=== PATIENT | female | born 1935 | race Caucasian/White ===

== ENCOUNTER 2018-11-20 13:48 | Emergency (ER) | payer MEDICARE ==
[~2018-11-20] VITALS: Ht 149.9 cm; Wt 51.7 kg
[~2018-11-20 13:48] MED LIST: ARTANE PO; ASPI81EC; CLON.5 PO; IRON; METO25ER PO; PROACE100 PO; RXPROACE PO; SULTRIDS PO; TEMA30 PO; TRAM50 PO; TRIHYD253A
[2018-11-20] MEDS ORDERED: Norco 5-325 Ta1 EACH PO (15:47)
[2018-11-20] MEDS ORDERED: ONDA4ODT MM (15:47)
[2018-11-20] MEDS ORDERED: IBUP400 PO (15:47)
== END 2018-11-20 17:25 | disposition home or self-care (01) ==
LOC: ER 13:48
DX: S52.612A Displaced fracture of left ulna styloid process, initial encounter for closed fracture (principal); S52.572A Other intraarticular fracture of lower end of left radius, initial encounter for closed fracture; I48.91 Unspecified atrial fibrillation; Z79.899 Other long term (current) drug therapy; Z79.82 Long term (current) use of aspirin; W19.XXXA Unspecified fall, initial encounter
CPT/HCPCS: 25605; 73100; 73110; 96374; 96375; 99152; 99283-25; J1170; J2405; J7030

== ENCOUNTER 2021-04-06 14:34 | Emergency (ER) | payer MEDICARE ==
[~2021-04-06] VITALS: Ht 144.8 cm; Wt 50.4 kg
[~2021-04-06 14:34] MED LIST changes: +IBUP400 PO; +Norco 5-325 Ta1 EACH PO; +ONDA4ODT MM
[2021-04-06 15:14] LABS: BASOPHILS ABSOLUTE AUTO 0.06 K/mm3 (0.00-0.23); BASOPHILS PERCENT AUTO 1 % (0-2); EOSINOPHILS ABSOLUTE AUTO 0.11 K/mm3 (0.00-0.68); EOSINOPHILS PERCENT AUTO 1 % (0-6); Hematocrit 41.8 % (33.0-51.0); Hemoglobin 13.6 g/dL (11.5-16.0); IMMATURE GRAN ABSOLUTE AUTO 0.02 K/mm3 (0.00-0.10); IMMATURE GRAN PERCENT AUTO 0 % (0-1); LYMPHOCYTES ABSOLUTE AUTO 2.26 K/mm3 (0.84-5.20); LYMPHOCYTES PERCENT AUTO 28 % (21-46); MONOCYTES ABSOLUTE AUTO 0.82 K/mm3 (0.16-1.47); MONOCYTES PERCENT AUTO 10 % (4-13); Mean Corpuscular HGB 30.2 pg (26.0-34.0); Mean Corpuscular HGB Conc 32.5 g/dL (31.5-36.5); Mean Corpuscular Volume 93 fL (80-100); Mean Platelet Volume 9.7 fL (9.1-12.4); NEUTROPHILS ABSOLUTE AUTO 4.88 K/mm3 (1.96-9.15); NEUTROPHILS PERCENT AUTO 60 % (41-73); Platelet Count 299 K/mm3 (150-400); RDW Coefficient Variation 13.2 % (11.7-14.2); RDW Standard Deviation 44.7 fL (35.1-46.3); Red Blood Cell Count 4.51 M/mm3 (3.80-5.20); White Blood Cell Count 8.15 K/mm3 (4.00-11.30)
[2021-04-06 15:41] LABS: Alanine Aminotransfer (ALT/SGP 20 U/L (12-78); Albumin, Blood 3.5 g/dL (3.4-5.0); Albumin/Globulin Ratio 0.8 (0.8-1.8); Alk Phos 117 U/L (50-136); Anion Gap 6 mmol/L (6-16); Aspartate Aminotrans (AST/SGOT 16 U/L (12-37); Bilirubin, Total 0.5 mg/dL (0.1-1.0); Blood Urea Nitrogen 23 mg/dL (8-24); Bun/Creatinine Ratio 26.9 (12.0-20.0); CO2, Blood 27 mmol/L (21-32); Calcium, Blood 8.6 mg/dL (8.5-10.1); Chloride, Blood 104 mmol/L (98-108); Creatinine, Blood 0.86 mg/dL (0.40-1.00); Globulin, Blood 4.4 g/dL (2.2-4.0); Glomerular Filtration Rate >60 (60-); Glucose, Blood 89 mg/dL (70-99); Potassium, Blood 4.1 mmol/L (3.5-5.5); Sodium, Blood 137 mmol/L (136-145); Total Protein, Blood 7.9 g/dL (6.4-8.2); Troponin I <0.015 ng/mL (0.000-0.040)
[2021-04-06 15:43] LABS: Free Thyroxine 1.21 ng/dL (0.70-1.60); Magnesium, Blood 2.3 mg/dL (1.6-2.4); Thyroid Stimulating Hormone 2.12 uIU/mL (0.360-4.800)
[2021-04-06 15:54] LABS: Source, Urine Clean Catch
[2021-04-06 16:02] LABS: Appearance, Urine Clear (Clear); Bilirubin, Urine Neg (Neg); Blood, Urine Neg (Neg); Color, Urine Yellow (P-Yellow); Glucose Qualitative, Urine Neg (Neg); Ketones, Urine Neg (Neg); Leukocyte Esterase, Urine 1+ (Neg); Nitrite, Urine Neg (Neg); Protein, Urine 1+ (Neg); Urobilinogen, Urine NORM (Normal)
[2021-04-06 16:13] LABS: Red Blood Cells, Urine Not Seen /hpf (0-2); White Blood Cells, Urine 0-2 /hpf (0-5)
[2021-04-06 16:14] LABS: Bacteria Mod /hpf; Mucus Light (0-Heavy); Squamous Epithelial Cells Few /hpf (Few)
== END 2021-04-06 16:48 | disposition home or self-care (01) ==
LOC: ER 14:34
PROVIDERS: Emergency Medicine
DX: R53.1 Weakness (principal); G25.0 Essential tremor; R82.90 Unspecified abnormal findings in urine; Z79.82 Long term (current) use of aspirin; Z88.5 Allergy status to narcotic agent; Z79.899 Other long term (current) drug therapy
CPT/HCPCS: 36415; 70450; 71046; 80053; 81001; 83735; 83880; 84439; 84443; 84484; 85025; 87086; 93005; 93010; 99285-25

== ENCOUNTER 2023-02-16 13:47 | Emergency (ER) | payer MEDICARE ==
[~2023-02-16] VITALS: Ht 149.9 cm; Wt 47.6 kg
[2023-02-16] MEDS ORDERED: GABA100 PO (14:20)
[2023-02-16] MEDS ORDERED: DILTIAZEM 24HR120 M2 PO (14:20)
[2023-02-16 14:23] LABS: BASOPHILS ABSOLUTE AUTO 0.07 K/mm3 (0.00-0.23); BASOPHILS PERCENT AUTO 1 % (0-2); EOSINOPHILS PERCENT AUTO 2 % (0-6); Hematocrit 43.9 % (33.0-51.0); Hemoglobin 14.3 g/dL (11.5-16.0); IMMATURE GRAN ABSOLUTE AUTO 0.03 K/mm3 (0.00-0.10); IMMATURE GRAN PERCENT AUTO 1 % (0-1); LYMPHOCYTES ABSOLUTE AUTO 1.76 K/mm3 (0.84-5.20); LYMPHOCYTES PERCENT AUTO 27 % (21-46); MONOCYTES ABSOLUTE AUTO 0.74 K/mm3 (0.16-1.47); MONOCYTES PERCENT AUTO 11 % (4-13); Mean Corpuscular HGB 30.4 pg (26.0-34.0); Mean Corpuscular HGB Conc 32.6 g/dL (31.5-36.5); Mean Corpuscular Volume 93 fL (80-100); NEUTROPHILS ABSOLUTE AUTO 3.84 K/mm3 (1.96-9.15); NEUTROPHILS PERCENT AUTO 59 % (41-73); Platelet Count 383 K/mm3 (150-400); RDW Coefficient Variation 13.6 % (11.7-14.2); RDW Standard Deviation 46.5 fL (35.1-46.3); Red Blood Cell Count 4.71 M/mm3 (3.80-5.20); White Blood Cell Count 6.54 K/mm3 (4.00-11.30)
[2023-02-16 14:39] LABS: Albumin, Blood 3.4 g/dL (3.4-5.0); Albumin/Globulin Ratio 0.7 (0.8-1.8); Bilirubin, Total 0.4 mg/dL (0.1-1.0); Bun/Creatinine Ratio 31.9 (12.0-20.0); Calcium, Blood 9.3 mg/dL (8.5-10.1); Creatinine, Blood 0.75 mg/dL (0.40-1.00); Potassium, Blood 4.2 mmol/L (3.5-5.5); Total Protein, Blood 8.4 g/dL (6.4-8.2)
[2023-02-16 16:09] LABS: Source, Urine Straight Cath
[2023-02-16 16:11] LABS: Appearance, Urine Clear (Clear); Bilirubin, Urine Neg (Neg); Blood, Urine Neg (Neg); Color, Urine Yellow (P-Yellow); Glucose Qualitative, Urine Neg (Neg); Ketones, Urine Neg (Neg); Leukocyte Esterase, Urine Neg (Neg); Nitrite, Urine Neg (Neg); Protein, Urine 1+ (Neg); Urobilinogen, Urine NORM (Normal)
[2023-02-16 16:32] LABS: Influenza A, PCR NEGATIVE (NEGATIVE); Influenza B, PCR NEGATIVE (NEGATIVE); Resp Syncytial Virus, PCR NEGATIVE (NEGATIVE); SARS-Cov-2 (COVID-19) PCR, MMC NEGATIVE (NEGATIVE)
[2023-02-16 17:26] VITALS: BP 148/95
== END 2023-02-16 17:39 | disposition home or self-care (01) ==
LOC: ER 13:47
PROVIDERS: Emergency Medicine
DX: R53.1 Weakness (principal); Z79.899 Other long term (current) drug therapy; I48.91 Unspecified atrial fibrillation; I10 Essential (primary) hypertension
CPT/HCPCS: 0241U; 36415; 71045; 80053; 84443; 85025; 93005; 93010; 99285-25

== ENCOUNTER 2023-08-05 01:24 | Emergency (ER) | payer MEDICARE ==
[~2023-08-05] VITALS: Ht 149.9 cm; Wt 47.6 kg
[~2023-08-05 01:24] MED LIST changes: +DILTIAZEM 24HR120 M2 PO; +GABA100 PO
[2023-08-05 01:34] VITALS: BP 140/104
== END 2023-08-05 02:45 | disposition home or self-care (01) ==
LOC: ER 01:24
DX: T14.8XXA Other injury of unspecified body region, initial encounter (principal); M25.512 Pain in left shoulder; M25.552 Pain in left hip; W18.30XA Fall on same level, unspecified, initial encounter; Z79.899 Other long term (current) drug therapy; I48.91 Unspecified atrial fibrillation; I10 Essential (primary) hypertension
CPT/HCPCS: 73030; 99283-25

== ENCOUNTER 2024-10-05 21:12 | Inpatient (IN) | payer MEDICARE ==
[~2024-10-05] VITALS: Ht 162.6 cm; Wt 47.0 kg
[~2024-10-05 21:12] MED LIST changes: +CEFU500T30 PO; +DRAMAMINE25 M1 PO; +FERSU300 PO; -METO25ER PO; +METO50ER PO; +MIRALAX17 GM PO; +Neurontin 100100 MG PO; +TEMA15 PO; +VISBIOME 112.51 EACH PO; +VITAMIN C125 MG PO
[2024-10-05 21:35] LABS: Source, Urine Straight Cath
[2024-10-05 21:43] LABS: Bilirubin, Urine Neg (Neg); Blood, Urine Neg (Neg); Glucose Qualitative, Urine Neg (Neg); Ketones, Urine Neg (Neg); Leukocyte Esterase, Urine 1+ (Neg); Nitrite, Urine Pos (Neg); Protein, Urine 2+ (Neg); Specific Gravity, Urine 1.015 (1.003-1.022); Urobilinogen, Urine NORM (Normal)
[2024-10-05 21:49] LABS: Appearance, Urine Hazy (Clear); Color, Urine Yellow (P-Yellow)
[2024-10-05 21:50] LABS: Bacteria Many /hpf; Red Blood Cells, Urine Not Seen /hpf (0-2); Squamous Epithelial Cells Rare /hpf (Few); White Blood Cells, Urine 25-50 /hpf (0-5)
[2024-10-05] MEDS ORDERED: Trihexyphenidyl2 MG PO (21:50)
[2024-10-05 21:54] LABS: Hemoglobin 10.1 g/dL (11.5-16.0); Mean Corpuscular HGB 27.2 pg (26.0-34.0); Mean Corpuscular HGB Conc 32.6 g/dL (31.5-36.5); Mean Corpuscular Volume 84 fL (80-100); Mean Platelet Volume 9.7 fL (9.1-12.4); NRBC ABSOLUTE 1.42 K/mm3 (0.00-0.02); NRBC Auto 0.8 /100 WBC (0.0-0.2); Platelet Count 623 K/mm3 (150-400); RDW Coefficient Variation 25.1 % (11.7-14.2); RDW Standard Deviation 76.4 fL (35.1-46.3); Red Blood Cell Count 3.71 M/mm3 (3.80-5.20)
[2024-10-05 22:01] LABS: White Blood Cell Count 167.33 K/mm3 (4.00-11.30)
[2024-10-05] MEDS ORDERED: NS 1,000 ML IV SCH (22:05)
[2024-10-05] MEDS ORDERED: CefTRIAXone Sodium 1,000 MG in NS 100 ML IV ONE (22:05)
[2024-10-05 22:13] LABS: Albumin, Blood 2.9 g/dL (3.4-5.0); Albumin/Globulin Ratio 0.7 (0.8-1.8); Bilirubin, Total 0.3 mg/dL (0.1-1.0); Bun/Creatinine Ratio 23.4 (12.0-20.0); Calcium, Blood 8.7 mg/dL (8.5-10.1); Creatinine, Blood 1.71 mg/dL (0.40-1.00); Globulin, Blood 4.3 g/dL (2.2-4.0); Total Protein, Blood 7.2 g/dL (6.4-8.2)
[2024-10-05 22:19] LABS: BAND PERCENT MAN 22 % (0-8); BASOPHILS ABSOLUTE MAN 5.01 K/mm3 (0.00-0.23); BASOPHILS PERCENT MAN 3 % (0-2); BLASTS PERCENT MAN 6 % (0-0); EOSINOPHILS ABSOLUTE MAN 6.69 K/mm3 (0.00-0.68); EOSINOPHILS PERCENT MAN 4 % (0-6); LYMPHOCYTES ABSOLUTE MAN 16.73 K/mm3 (0.84-5.20); LYMPHOCYTES PERCENT MAN 10 % (21-46); METAMYELOCYTE ABSOLUTE MAN 5.01 K/mm3 (0.00-0.00); METAMYELOCYTE PERCENT MAN 3 % (0-0); MONOCYTES ABSOLUTE MAN 23.42 K/mm3 (0.16-1.47); MONOCYTES PERCENT MAN 14 % (4-13); MYELOCYTE ABSOLUTE MAN 21.75 K/mm3 (0.00-0.00); MYELOCYTE PERCENT MAN 13 % (0-0); NEUTROPHILS ABSOLUTE MAN 75.29 K/mm3 (1.96-9.15); PROMYELOCYTE ABSOLUTE MAN 3.34 K/mm3 (0.00-0.00); PROMYELOCYTE PERCENT MAN 2 % (0-0); SEG NEUTROPHILS PERCENT MAN 23 % (41-73); TOTAL CELLS COUNTED 100
[2024-10-05 22:29] LABS: Influenza A, PCR NEGATIVE (NEGATIVE); Influenza B, PCR NEGATIVE (NEGATIVE); Resp Syncytial Virus, PCR NEGATIVE (NEGATIVE); SARS-Cov-2 (COVID-19) PCR, MMC NEGATIVE (NEGATIVE)
[2024-10-05] MEDS ORDERED: FLU VACC TS2024-25(6MOS UP)/PF 45 MCG/0.5 ML SYRINGE IM ONE (23:35)
[2024-10-06 00:10] LABS: U Amphetamine Screen Not Detected; U Barbituate Screen Not Detected; U Benzodiazapine Screen DETECTED; U Buprenorphine Screen Not Detected; U Cannabinoids Screen Not Detected; U Cocaine Screen Not Detected; U Methadone Screen Not Detected; U Methamphetamine Screen Not Detected; U Opiates Screen Not Detected; U Oxycodone Screen Not Detected; U Phencyclidine Screen Not Detected
[2024-10-06 00:18] LABS: Creatinine, Urine Random 55.5 mg/dL (27.00-270.00)
[2024-10-06 00:45] VITALS: BP 131/50
[2024-10-06] MEDS ORDERED: ENSURE PLUS237 ML PO (01:22)
[2024-10-06] MEDS ORDERED: Acetaminophen650 M1 PO (01:34)
[2024-10-06] MEDS ORDERED: BISA10S PR (01:35)
[2024-10-06] MEDS ORDERED: HYDHCL25 PO (01:36)
[2024-10-06] MEDS ORDERED: DULCOLAX400 MG/5 M PO (01:36)
[2024-10-06] MEDS ORDERED: SENN187 PO (01:39)
[2024-10-06] MEDS ORDERED: Calcium Carbon500 MG PO (01:44)
[2024-10-06] MEDS ORDERED: NS 1,000 ML IV ONE (02:54)
--- NOTE | 2024-10-06 05:35 | NUR ---
SHIFT SUMMARY PT ADMITTED FROM THE ED AT 0035 WITH TOXIC METABOLIC ENCEPHALOPATHY AND UTI. PT MOSTLY CATATONIC THROUGH THE NIGHT. AFTER 0200, PT OCCASSIONALLY CRIES OUT, AND SAID "NO" A COUPLE OF TIMES. PT WITH REDDENED SPINE AND SACRUM- MEPELEX APPLIED. HEELS REDDENED AND BOGGY- HEEL PROTECTORS APPLIED. PT REPOSITIONED WITH PILLOWS. IVF INFUSING AT 200ML/HR PER ORDER. PT'S DAUGHTERS AT BEDSIDE FOR PART OF THE NIGHT. BED IN LOWEST POSITION, CALL LIGHT WITHIN REACH, SIDE RAILS UP X3.
[2024-10-06 06:24] VITALS: BP 143/53
[2024-10-06 06:58] LABS: Hemoglobin 8.3 g/dL (11.5-16.0); Mean Corpuscular HGB 27.5 pg (26.0-34.0); Mean Corpuscular HGB Conc 33.2 g/dL (31.5-36.5); Mean Corpuscular Volume 83 fL (80-100); Mean Platelet Volume 9.7 fL (9.1-12.4); NRBC ABSOLUTE 0.89 K/mm3 (0.00-0.02); NRBC Auto 0.7 /100 WBC (0.0-0.2); Platelet Count 521 K/mm3 (150-400); RDW Standard Deviation 77.3 fL (35.1-46.3); Red Blood Cell Count 3.02 M/mm3 (3.80-5.20)
[2024-10-06 07:06] LABS: White Blood Cell Count 122.89 K/mm3 (4.00-11.30)
[2024-10-06 07:17] LABS: Bun/Creatinine Ratio 20.8 (12.0-20.0); Calcium, Blood 8.6 mg/dL (8.5-10.1); Creatinine, Blood 1.83 mg/dL (0.40-1.00); Potassium, Blood 3.5 mmol/L (3.5-5.5)
[2024-10-06 07:30] VITALS: BP 134/47
[2024-10-06 08:25] LABS: BAND PERCENT MAN 28 % (0-8); BASOPHILS ABSOLUTE MAN 3.68 K/mm3 (0.00-0.23); BASOPHILS PERCENT MAN 3 % (0-2); BLASTS PERCENT MAN 7 % (0-0); EOSINOPHILS ABSOLUTE MAN 3.68 K/mm3 (0.00-0.68); EOSINOPHILS PERCENT MAN 3 % (0-6); LYMPHOCYTES ABSOLUTE MAN 4.91 K/mm3 (0.84-5.20); LYMPHOCYTES PERCENT MAN 4 % (21-46); METAMYELOCYTE ABSOLUTE MAN 1.22 K/mm3 (0.00-0.00); METAMYELOCYTE PERCENT MAN 1 % (0-0); MONOCYTES ABSOLUTE MAN 12.28 K/mm3 (0.16-1.47); MONOCYTES PERCENT MAN 10 % (4-13); MYELOCYTE ABSOLUTE MAN 24.57 K/mm3 (0.00-0.00); MYELOCYTE PERCENT MAN 20 % (0-0); NEUTROPHILS ABSOLUTE MAN 62.67 K/mm3 (1.96-9.15); PROMYELOCYTE ABSOLUTE MAN 1.22 K/mm3 (0.00-0.00); PROMYELOCYTE PERCENT MAN 1 % (0-0); SEG NEUTROPHILS PERCENT MAN 23 % (41-73); TOTAL CELLS COUNTED 100
[2024-10-06] MEDS ORDERED: Enoxaparin 30 MG/0.3 ML SYR SC SCH (09:00)
[2024-10-06] MEDS ORDERED: NS 1,000 ML IV SCH (11:15)
[2024-10-06] MEDS ORDERED: Acetaminophen 325 MG TABLET PO STA (11:59)
[2024-10-06] MEDS ORDERED: Acetaminophen 325 MG TABLET PO PRN (12:00)
[2024-10-06] MEDS ORDERED: Calcium Carbonate 500 MG Tab Chew PO PRN (12:05)
[2024-10-06] MEDS ORDERED: Bisacodyl 10 MG Supp PR PRN (12:05)
[2024-10-06] MEDS ORDERED: Acetaminophen 650 MG Supp PR PRN (13:00)
[2024-10-06] MEDS ORDERED: FentaNYL Citrate 50 MCG/ML 2 ML Injection IV STA (13:35)
[2024-10-06] MEDS ORDERED: Misc. Oral Solution PO SCH (14:00)
[2024-10-06] MEDS ORDERED: FentaNYL Citrate 50 MCG/ML 2 ML Injection IV PRN (14:00)
[2024-10-06 16:08] VITALS: BP 136/65
--- NOTE | 2024-10-06 16:29 | NUR ---
SHIFT SUMMARY PT SLEEPING AT START OF SHIFT. UNABLE TO WAKE, EVEN WITH TURNING AND CHANGING. PT'S DAUGHTERS HERE LATE MORNING WITH PT SLOWLY RESPONDING TO THEM AND C/O PAIN, EVERYWHERE. FIRST HER KNEES AND THEN CHEST. DR RAMOS NOTIFIED; NEW ORDERS PLACED. PALLIATIVE CARE NOTIFIED AND CAME TO TALK WITH DAUGHTERS AND FAMILY. PT WANTING TO BE COMFORT CARE AND GO HOME ON HOSPICE. PT IS NOW ORIENTED WITH MULTIPLE FAMILY HERE. PT DECLINING TO TAKE PO JUST YET. PT DID REQUEST ORAL CARE AND WAS ABLE TO TOLERATE WATER ON A SPONGE. PT DECLINED PO MEDS. RECTAL TYLENOL GIVEN WELL FENTANYL X1. PT TOLERATING WELL AND REPORTED IT VERY EFFECTIVE. PT REPOSITIONED MULTIPLE TIMES THRU OUT THE SHIFT. CURRENTLY INCONTINENT OF BLADDER, BUT REPORTED NORMALLY SHE DOES KNOW WHEN SHE NEEDS TO VOID. ADMITTED FOR METABOLIC ENCEPHALOPATHY R/T UTI. NEW DX OF LEUKEMIA WELL. IVF'S INFUSING PER EMAR. HEATING PAD PLACED ON R KNEE, PER PT REQUEST. DENIES FURTHER NEEDS AT THIS TIME. CALL LT IN REACH.
[2024-10-06] MEDS ORDERED: dilTIAZem HCL 120 MG CAP.CD PO SCH (18:00)
[2024-10-06 20:39] VITALS: BP 132/90
[2024-10-06] MEDS ORDERED: CefTRIAXone Sodium 1,000 MG in NS 100 ML IV SCH (21:00)
[2024-10-06 21:04] VITALS: BP 133/54
[2024-10-06] MEDS ORDERED: Phenazopyridine HCl 100 MG Tab PO SCH (23:00)
--- NOTE | 2024-10-06 23:01 | NUR ---
PT COMPLAINING OF BLADDER DISCOMFORT AND BURNING. TABLE GAMES FLOOR SUPERVISOR JOHNNIE NOTIFIED AND PYRIDIUM ORDERED. PT ALSO COMPLETELY AWAKE AND ALERT, ASKING TO ADVANCE DIET FROM NPO. ORDERS RECEIVED FOR REGULAR DIET. SOFT AND BITE SIZED DIET ORDERED PER USUAL DIET.
[2024-10-06] MEDS ORDERED: Cyclobenzaprine HCl 10 MG Tab PO PRN (23:45)
--- NOTE | 2024-10-06 23:45 | NUR ---
PER PHARMACY PYRIDIUM IS CONTRAINDICATED WITH PT'S RENAL FUNCTION. WINTERIZER JOHNNIE NOTIFIED AND FLEXERIL ORDERED FOR BLADDER SPASMS.
[2024-10-07 04:15] VITALS: BP 132/81
[2024-10-07 06:09] LABS: Mean Corpuscular HGB 27.4 pg (26.0-34.0); Mean Corpuscular HGB Conc 32.1 g/dL (31.5-36.5); Mean Corpuscular Volume 85 fL (80-100); Mean Platelet Volume 9.5 fL (9.1-12.4); NRBC ABSOLUTE 0.85 K/mm3 (0.00-0.02); NRBC Auto 0.7 /100 WBC (0.0-0.2); Platelet Count 566 K/mm3 (150-400); RDW Coefficient Variation 25.6 % (11.7-14.2); RDW Standard Deviation 79.5 fL (35.1-46.3); Red Blood Cell Count 3.29 M/mm3 (3.80-5.20)
--- NOTE | 2024-10-07 06:09 | NUR ---
SHIFT SUMMARY PT A&O X4. PT MUCH MORE AWAKE. REQUESTING ORAL TYLENOL INSTEAD OF RECTAL. PT ABLE TO SWALLOW WATER AND TOOK MEDS EASILY WITH APPLE SAUCE. ORDER RECEIVED FOR DIET. PT C/O BURNING AND SPASMS TO HER BLADDER- ORDER RECEIVED FOR FLEXERIL. PT ALSO C/O PAIN IN VARYING PLACES THROUGH THE NIGHT. MEDICATED PER EMAR. PT INCONT. OF STRONG SMELLING URINE. MEPELEX INTACT TO SACRUM AND SPINE. HEELS LESS RED, BUT STILL BOGGY. HEELS ELEVATED OFF BED AND PT REPOSITIONED Q 2HRS. MULTIPLE FAMILY MEMBERS VISITING AT BEGINNING OF SHIFT. DAUGHTER, HAYLEY, AT BEDSIDE THROUGH THE NIGHT. BED IN LOWEST POSITION, CALL LIGHT WITHIN REACH, SIDE RAILS UP X2.
[2024-10-07 06:18] LABS: White Blood Cell Count 123.38 K/mm3 (4.00-11.30)
[2024-10-07 06:38] LABS: BAND PERCENT MAN 18 % (0-8); BASOPHILS ABSOLUTE MAN 4.93 K/mm3 (0.00-0.23); BASOPHILS PERCENT MAN 4 % (0-2); BLASTS PERCENT MAN 6 % (0-0); EOSINOPHILS PERCENT MAN 3 % (0-6); LYMPHOCYTES ABSOLUTE MAN 12.33 K/mm3 (0.84-5.20); LYMPHOCYTES PERCENT MAN 10 % (21-46); METAMYELOCYTE ABSOLUTE MAN 4.93 K/mm3 (0.00-0.00); METAMYELOCYTE PERCENT MAN 4 % (0-0); MONOCYTES PERCENT MAN 3 % (4-13); MYELOCYTE ABSOLUTE MAN 19.74 K/mm3 (0.00-0.00); MYELOCYTE PERCENT MAN 16 % (0-0); NEUTROPHILS ABSOLUTE MAN 65.39 K/mm3 (1.96-9.15); PROMYELOCYTE ABSOLUTE MAN 1.23 K/mm3 (0.00-0.00); PROMYELOCYTE PERCENT MAN 1 % (0-0); SEG NEUTROPHILS PERCENT MAN 35 % (41-73); TOTAL CELLS COUNTED 100
[2024-10-07 06:44] LABS: Albumin, Blood 2.6 g/dL (3.4-5.0); Anion Gap 10 mmol/L (3-11); Blood Urea Nitrogen 33 mg/dL (8-24); Bun/Creatinine Ratio 19.2 (12.0-20.0); CO2, Blood 19 mmol/L (21-32); Calcium, Blood 8.6 mg/dL (8.5-10.1); Chloride, Blood 121 mmol/L (98-108); Creatinine, Blood 1.72 mg/dL (0.40-1.00); Glomerular Filtration Rate 28 (60-); Glucose, Blood 71 mg/dL (70-99); Phosphorus, Blood 3.2 mg/dL (2.5-4.9); Potassium, Blood 3.8 mmol/L (3.5-5.5); Sodium, Blood 146 mmol/L (136-145)
[2024-10-07 07:48] VITALS: BP 131/55
[2024-10-07] MEDS ORDERED: Metoprolol Succinate 50 MG TABCR PO SCH (09:00)
[2024-10-07] MEDS ORDERED: Polyethylene Glycol 3350 17 gm PO SCH (09:00)
[2024-10-07] MEDS ORDERED: Ferrous Sulfate 325 MG Tab PO SCH (09:00)
[2024-10-07] MEDS ORDERED: Phenazopyridine HCl 100 MG Tab PO SCH (09:00)
[2024-10-07] MEDS ORDERED: Heparin Sodium,Porcine 5,000 UNIT/0.5 ML SDV SC SCH (09:00)
[2024-10-07] MEDS ORDERED: Heparin Sodium 5000 Units/ML 1ML MDV SC SCH (12:27)
--- NOTE | 2024-10-07 13:55 | NUR ---
Spiritual care visit conducted. Patient is lying in bed and has dtr, Keisha, and son, Jose, bedside. They all engage in the conversation and explain about the patient's medical history, their family dynamics and the plan moving forward. 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 They welcome prayer, which I gladly supply and voice much appreciation for the high quality care of the staff and for the prayer. Patient showed signs of greater peace. I will continue to remain available.
[2024-10-07 15:18] VITALS: BP 135/55
--- NOTE | 2024-10-07 17:21 | NUR ---
SHIFT SUMMARY: PT AOX4 VERY PLEASANT. MILD CONFUSION BUT EASILY REDIRECTABLE. FAMILY AT BEDSIDE AND VERY PLEASANT. PT WAS UNABLE TO GET UP TO USE THE BSC, BUT KNEW WHEN SHE WENT. CHANGED AND CLEANED. PT TOLERATING MEDICATION WELL. COMPLAINTS OF PAIN AND MUSCLE SPASMS CAUSING PAIN, RELIEVED PER EMR AND REPOSITIONING. TOLERATED SOME CHICKEN NOODLE SOUP BUT OTHERWISE NOT EATING MUCH. BASELINE TREMOR STILL PRESENT. PT ABLE TO MAKE NEEDS KNOWN, RESTING IN BED, CALL LIGHT IN REACH, BED IN LOWEST POSITION. CONTINUING CARE.
--- NOTE | 2024-10-07 17:41 | NUR ---
THIS MICRO COMPUTER SPECIALIST HAS REVIEWED AND AGREES WITH ALL NOTES AND ASSESSMENTS BY ЕЛЕНА SEBASTIAN.
[2024-10-07 19:11] VITALS: BP 133/67
[2024-10-08 04:35] VITALS: BP 154/62
--- NOTE | 2024-10-08 05:25 | NUR ---
NOC SUMMARY- PT HAD SOME INCREASED PAIN THIS SHIFT. PT TX W/ PRN FENTANYL WITH RELIEF. PT HAS BEEN REPOSITIONED TOLERATED. PT HEELS HAVE BEEN KEPT ELEVATED AND OFF THE BED. PT CONTINUES TO WEAR MEPILEX ON MID BACK AND SACRUM. PT BRIEF CHANGED NEEDED. PT VOIDING AND SOME BM SMEARS. PT HAS SLEPT WELL THIS SHIFT. PT CURRENTLY SLEEPING IN NO DISTRESS. CALL LIGHT IN REACH.
[2024-10-08 06:18] LABS: Hematocrit 28.6 % (33.0-51.0); Hemoglobin 9.3 g/dL (11.5-16.0); Mean Corpuscular HGB 27.6 pg (26.0-34.0); Mean Corpuscular HGB Conc 32.5 g/dL (31.5-36.5); Mean Corpuscular Volume 85 fL (80-100); Mean Platelet Volume 9.8 fL (9.1-12.4); NRBC ABSOLUTE 0.87 K/mm3 (0.00-0.02); NRBC Auto 0.7 /100 WBC (0.0-0.2); Platelet Count 571 K/mm3 (150-400); RDW Coefficient Variation 25.4 % (11.7-14.2); RDW Standard Deviation 78.3 fL (35.1-46.3); Red Blood Cell Count 3.37 M/mm3 (3.80-5.20)
[2024-10-08 06:20] LABS: White Blood Cell Count 128.46 K/mm3 (4.00-11.30)
[2024-10-08 06:26] LABS: Albumin, Blood 2.5 g/dL (3.4-5.0); Anion Gap 8 mmol/L (3-11); Blood Urea Nitrogen 31 mg/dL (8-24); Bun/Creatinine Ratio 18.6 (12.0-20.0); CO2, Blood 21 mmol/L (21-32); Calcium, Blood 8.7 mg/dL (8.5-10.1); Chloride, Blood 117 mmol/L (98-108); Creatinine, Blood 1.67 mg/dL (0.40-1.00); Glomerular Filtration Rate 29 (60-); Glucose, Blood 72 mg/dL (70-99); Phosphorus, Blood 3.6 mg/dL (2.5-4.9); Potassium, Blood 4.1 mmol/L (3.5-5.5); Sodium, Blood 142 mmol/L (136-145)
[2024-10-08 07:32] VITALS: BP 159/62
[2024-10-08 07:33] LABS: BAND PERCENT MAN 7 % (0-8); BASOPHILS ABSOLUTE MAN 2.56 K/mm3 (0.00-0.23); BASOPHILS PERCENT MAN 2 % (0-2); BLASTS PERCENT MAN 5 % (0-0); EOSINOPHILS ABSOLUTE MAN 5.13 K/mm3 (0.00-0.68); EOSINOPHILS PERCENT MAN 4 % (0-6); LYMPHOCYTES ABSOLUTE MAN 5.13 K/mm3 (0.84-5.20); LYMPHOCYTES PERCENT MAN 4 % (21-46); METAMYELOCYTE ABSOLUTE MAN 3.85 K/mm3 (0.00-0.00); METAMYELOCYTE PERCENT MAN 3 % (0-0); MONOCYTES ABSOLUTE MAN 23.12 K/mm3 (0.16-1.47); MONOCYTES PERCENT MAN 18 % (4-13); MYELOCYTE ABSOLUTE MAN 42.39 K/mm3 (0.00-0.00); MYELOCYTE PERCENT MAN 33 % (0-0); NEUTROPHILS ABSOLUTE MAN 35.96 K/mm3 (1.96-9.15); PROMYELOCYTE ABSOLUTE MAN 3.85 K/mm3 (0.00-0.00); PROMYELOCYTE PERCENT MAN 3 % (0-0); SEG NEUTROPHILS PERCENT MAN 21 % (41-73); TOTAL CELLS COUNTED 100
[2024-10-08 12:59] LABS: CORONAVIRUS COVID-19 AG Negative (NEGATIVE)
[2024-10-08] MEDS ORDERED: VISBIOME 112.51 EACH PO (14:19)
[2024-10-08] MEDS ORDERED: ACET500 PO (14:20)
[2024-10-08] MEDS ORDERED: AMOX-CLAV 500-1 EAC1 PO (14:21)
--- NOTE | 2024-10-08 15:04 | NUR ---
PT DISCHARGED TO [facility] VIA [facility]. ALL VALUABLES RETURNED AND SENT WITH THE PT. FAMILY PRESENT AT TIMES OF DISCHARGE. ATTEMPT TO CALL REPORT TO [facility] UNABLE TO REACH.
== END 2024-10-08 11:00 | DRG 682 ==
LOC: ER 21:12 → MEDS 23:48 → ERHOLD 23:48 → MEDS 10-06 00:30
PROVIDERS: Emergency Medicine; Internal Medicine; Student in an Organized Health Care Education/Training Program; ADMIT Student in an Organized Health Care Education/Training Program
DX: N17.9 Acute kidney failure, unspecified (principal); G92.8 Other toxic encephalopathy; C85.90 Non-Hodgkin lymphoma, unspecified, unspecified site; N39.0 Urinary tract infection, site not specified; C92.10 Chronic myeloid leukemia, BCR/ABL-positive, not having achieved remission; I47.10 Supraventricular tachycardia, unspecified; Z66 Do not resuscitate; I12.9 Hypertensive chronic kidney disease with stage 1 through stage 4 chronic kidney disease, or unspecified chronic kidney disease; I48.91 Unspecified atrial fibrillation; N18.9 Chronic kidney disease, unspecified; R25.1 Tremor, unspecified; D50.9 Iron deficiency anemia, unspecified; G47.00 Insomnia, unspecified; G62.9 Polyneuropathy, unspecified; E86.0 Dehydration; B96.20 Unspecified Escherichia coli [E. coli] as the cause of diseases classified elsewhere; R42 Dizziness and giddiness; Z90.49 Acquired absence of other specified parts of digestive tract; Z79.899 Other long term (current) drug therapy; Z79.2 Long term (current) use of antibiotics; Z90.89 Acquired absence of other organs; Z90.710 Acquired absence of both cervix and uterus; Z87.891 Personal history of nicotine dependence; Z87.19 Personal history of other diseases of the digestive system; Z79.891 Long term (current) use of opiate analgesic; Z99.3 Dependence on wheelchair; Z98.890 Other specified postprocedural states; Z90.721 Acquired absence of ovaries, unilateral; Z28.89 Immunization not carried out for other reason
CPT/HCPCS: 0241U; 36415; 70450; 71045; 80048; 80053; 80069; 81001; 82570; 84300; 85025; 87077; 87086; 87186; 87426-QW; 93005; 93010; 96365; 97165; 97530; 99285-25; A9270; J0696; J1644; J1650; J3010; J7030; P9612

== ENCOUNTER 2024-11-02 12:56 | Emergency (ER) | payer MEDICARE, OTHER ==
[~2024-11-02] VITALS: Ht 149.9 cm; Wt 42.2 kg
[~2024-11-02 12:56] MED LIST changes: +ACET500 PO; +AMOX-CLAV 500-1 EAC1 PO; +Acetaminophen650 M1 PO; +BISA10S PR; +Calcium Carbon500 MG PO; +DULCOLAX400 MG/5 M PO; +ENSURE PLUS237 ML PO; +HYDHCL25 PO; +SENN187 PO; +Trihexyphenidyl2 MG PO
[2024-11-02] MEDS ORDERED: NS 1,000 ML IV SCH ×2 (13:30→14:35)
[2024-11-02 13:51] LABS: Hematocrit 26.7 % (33.0-51.0); Hemoglobin 8.9 g/dL (11.5-16.0); Mean Corpuscular HGB 28.7 pg (26.0-34.0); Mean Corpuscular HGB Conc 33.3 g/dL (31.5-36.5); Mean Corpuscular Volume 86 fL (80-100); Mean Platelet Volume 10.3 fL (9.1-12.4); NRBC ABSOLUTE 1.15 K/mm3 (0.00-0.02); NRBC Auto 0.7 /100 WBC (0.0-0.2); Platelet Count 285 K/mm3 (150-400); RDW Coefficient Variation 21.9 % (11.7-14.2); RDW Standard Deviation 67.4 fL (35.1-46.3)
[2024-11-02 13:57] LABS: White Blood Cell Count 170.24 K/mm3 (4.00-11.30)
[2024-11-02 14:14] LABS: Albumin, Blood 2.9 g/dL (3.4-5.0); Albumin/Globulin Ratio 0.6 (0.8-1.8); Bilirubin, Total 0.3 mg/dL (0.1-1.0); Bun/Creatinine Ratio 22.1 (12.0-20.0); Calcium, Blood 8.1 mg/dL (8.5-10.1); Creatinine, Blood 2.4 mg/dL (0.40-1.00); Globulin, Blood 4.5 g/dL (2.2-4.0); Potassium, Blood 4.4 mmol/L (3.5-5.5); Total Protein, Blood 7.4 g/dL (6.4-8.2)
[2024-11-02 14:30] LABS: BAND PERCENT MAN 19 % (0-8); BASOPHILS PERCENT MAN 1 % (0-2); BLASTS PERCENT MAN 3 % (0-0); EOSINOPHILS PERCENT MAN 2 % (0-6); LYMPHOCYTES % ATYPICAL MANUAL 2 % (0-0); LYMPHOCYTES ABSOLUTE MAN 15.32 K/mm3 (0.84-5.20); LYMPHOCYTES PERCENT MAN 7 % (21-46); METAMYELOCYTE ABSOLUTE MAN 13.61 K/mm3 (0.00-0.00); METAMYELOCYTE PERCENT MAN 8 % (0-0); MONOCYTES PERCENT MAN 4 % (4-13); MYELOCYTE ABSOLUTE MAN 32.34 K/mm3 (0.00-0.00); MYELOCYTE PERCENT MAN 19 % (0-0); NEUTROPHILS ABSOLUTE MAN 85.12 K/mm3 (1.96-9.15); PROMYELOCYTE PERCENT MAN 4 % (0-0); SEG NEUTROPHILS PERCENT MAN 31 % (41-73); TOTAL CELLS COUNTED 100
[2024-11-02 15:53] LABS: Source, Urine Fem Cath
[2024-11-02 16:02] LABS: Appearance, Urine Hazy (Clear); Bilirubin, Urine Neg (Neg); Blood, Urine 4+ (Neg); Color, Urine Yellow (P-Yellow); Glucose Qualitative, Urine Neg (Neg); Ketones, Urine Neg (Neg); Leukocyte Esterase, Urine 1+ (Neg); Nitrite, Urine Neg (Neg); Protein, Urine 2+ (Neg); Specific Gravity, Urine 1.015 (1.003-1.022); Urobilinogen, Urine 1+ (Normal); pH, Urine 6.5 (5.0-8.0)
[2024-11-02 16:12] LABS: Bacteria Many /hpf; Hyaline Casts 0-2 /lpf (0-2); Squamous Epithelial Cells Mod /hpf (Few); Transitional Epithelial Cells Rare /hpf (0-Rare)
[2024-11-02 17:06] VITALS: BP 137/85
== END 2024-11-02 17:07 | disposition home or self-care (01) ==
LOC: ER 12:56
PROVIDERS: Emergency Medicine
DX: I12.9 Hypertensive chronic kidney disease with stage 1 through stage 4 chronic kidney disease, or unspecified chronic kidney disease (principal); N18.9 Chronic kidney disease, unspecified; R79.9 Abnormal finding of blood chemistry, unspecified; C95.10 Chronic leukemia of unspecified cell type not having achieved remission; Z79.899 Other long term (current) drug therapy
CPT/HCPCS: 80053; 81001; 85025; 87077; 87086; 87186; 96360; 96361; 99283-25; J7030

== ENCOUNTER 2024-11-19 16:43 | Emergency (ER) | payer MEDICARE, OTHER ==
[~2024-11-19] VITALS: Ht 144.8 cm; Wt 45.4 kg
[2024-11-19] MEDS ORDERED: Ondansetron HCl 2 MG / ML 2ML Vial IV ONE (17:05)
[2024-11-19] MEDS ORDERED: NS 1,000 ML IV SCH ×2 (17:30→20:45)
[2024-11-19 17:41] LABS: BASOPHILS ABSOLUTE AUTO 0.28 K/mm3 (0.00-0.23); BASOPHILS PERCENT AUTO 2 % (0-2); EOSINOPHILS ABSOLUTE AUTO 1.99 K/mm3 (0.00-0.68); EOSINOPHILS PERCENT AUTO 13 % (0-6); Hematocrit 28.2 % (33.0-51.0); Hemoglobin 9.1 g/dL (11.5-16.0); IMMATURE GRAN ABSOLUTE AUTO 0.55 K/mm3 (0.00-0.10); IMMATURE GRAN PERCENT AUTO 4 % (0-1); LYMPHOCYTES ABSOLUTE AUTO 2.85 K/mm3 (0.84-5.20); LYMPHOCYTES PERCENT AUTO 18 % (21-46); MONOCYTES PERCENT AUTO 11 % (4-13); Mean Corpuscular HGB Conc 32.3 g/dL (31.5-36.5); Mean Corpuscular Volume 90 fL (80-100); Mean Platelet Volume 12.4 fL (9.1-12.4); NEUTROPHILS ABSOLUTE AUTO 8.51 K/mm3 (1.96-9.15); NEUTROPHILS PERCENT AUTO 54 % (41-73); NRBC ABSOLUTE 0.06 K/mm3 (0.00-0.02); NRBC Auto 0.4 /100 WBC (0.0-0.2); Platelet Count 154 K/mm3 (150-400); RDW Coefficient Variation 19.9 % (11.7-14.2); RDW Standard Deviation 64.1 fL (35.1-46.3); Red Blood Cell Count 3.14 M/mm3 (3.80-5.20); White Blood Cell Count 15.88 K/mm3 (4.00-11.30)
[2024-11-19 17:59] LABS: Albumin/Globulin Ratio 0.6 (0.8-1.8); Bilirubin, Total 0.5 mg/dL (0.1-1.0); Bun/Creatinine Ratio 28.7 (12.0-20.0); Calcium, Blood 8.3 mg/dL (8.5-10.1); Creatinine, Blood 2.23 mg/dL (0.40-1.00); Globulin, Blood 4.8 g/dL (2.2-4.0); Potassium, Blood 5.2 mmol/L (3.5-5.5); Total Protein, Blood 7.8 g/dL (6.4-8.2)
[2024-11-19] MEDS ORDERED: ONDA4ODT MM (18:57)
[2024-11-19] MEDS ORDERED: OMEP20ER PO (18:57)
[2024-11-19] MEDS ORDERED: ONDA4 PO (18:58)
[2024-11-19] MEDS ORDERED: SULTRIDS PO (18:59)
[2024-11-19] MEDS ORDERED: BOSULIF PO (19:01)
[2024-11-19] MEDS ORDERED: IMODIUM A-D2 M1 PO (19:04)
[2024-11-19] MEDS ORDERED: HYDROmorphone HCl/Pf 1MG SYR IV ONE (19:45)
[2024-11-19 22:51] LABS: Source, Urine Clean Catch
[2024-11-19 22:54] LABS: Blood, Urine Neg (Neg); Glucose Qualitative, Urine Neg (Neg); Ketones, Urine Neg (Neg); Leukocyte Esterase, Urine 1+ (Neg); Nitrite, Urine Neg (Neg); Protein, Urine 2+ (Neg); Urobilinogen, Urine NORM (Normal)
[2024-11-19 23:00] LABS: Appearance, Urine Hazy (Clear); Bilirubin, Urine 1+ (Neg); Color, Urine Yellow (P-Yellow)
[2024-11-19 23:01] LABS: Bacteria Many /hpf; Red Blood Cells, Urine 0-2 /hpf (0-2); Squamous Epithelial Cells Mod /hpf (Few)
[2024-11-19 23:02] LABS: Granular Casts 0-2 /lpf (0)
[2024-11-19 23:15] VITALS: BP 121/52
[2024-11-19] MEDS ORDERED: NITR100CA PO (23:19)
[2024-11-19] MEDS ORDERED: AMOCLA875 PO (23:23)
[2024-11-19] MEDS ORDERED: Amoxicillin/Clavulanate K 875 MG Tab PO ONE (23:25)
== END 2024-11-19 23:52 | disposition home or self-care (01) ==
LOC: ER 16:43
PROVIDERS: Physician Assistant
DX: E86.0 Dehydration (principal); R19.7 Diarrhea, unspecified; N39.0 Urinary tract infection, site not specified; C92.10 Chronic myeloid leukemia, BCR/ABL-positive, not having achieved remission; I48.91 Unspecified atrial fibrillation; Z59.89 Other problems related to housing and economic circumstances; Z79.899 Other long term (current) drug therapy
CPT/HCPCS: 74176; 80053; 81001; 85025; 87086; 96374; 96375; 99284-25; A9270; J1171; J2405; J7030

== ENCOUNTER 2024-11-23 13:05 | Emergency (ER) | payer MEDICARE, OTHER ==
[~2024-11-23] VITALS: Ht 157.5 cm; Wt 45.4 kg
[~2024-11-23 13:05] MED LIST changes: +AMOCLA875 PO; +BOSULIF PO; +IMODIUM A-D2 M1 PO; +NITR100CA PO; +OMEP20ER PO; +ONDA4 PO
[2024-11-23 15:16] LABS: Source, Urine Straight Cath
[2024-11-23 15:26] LABS: Appearance, Urine Hazy (Clear); Bilirubin, Urine Neg (Neg); Blood, Urine 1+ (Neg); Color, Urine Yellow (P-Yellow); Glucose Qualitative, Urine Neg (Neg); Ketones, Urine Neg (Neg); Leukocyte Esterase, Urine 1+ (Neg); Nitrite, Urine Neg (Neg); Protein, Urine 2+ (Neg); Specific Gravity, Urine 1.015 (1.003-1.022); Urobilinogen, Urine NORM (Normal)
[2024-11-23 15:27] LABS: BASOPHILS ABSOLUTE AUTO 0.24 K/mm3 (0.00-0.23); BASOPHILS PERCENT AUTO 3 % (0-2); EOSINOPHILS ABSOLUTE AUTO 1.47 K/mm3 (0.00-0.68); EOSINOPHILS PERCENT AUTO 19 % (0-6); IMMATURE GRAN ABSOLUTE AUTO 0.13 K/mm3 (0.00-0.10); IMMATURE GRAN PERCENT AUTO 2 % (0-1); LYMPHOCYTES ABSOLUTE AUTO 2.24 K/mm3 (0.84-5.20); LYMPHOCYTES PERCENT AUTO 29 % (21-46); MONOCYTES ABSOLUTE AUTO 1.24 K/mm3 (0.16-1.47); MONOCYTES PERCENT AUTO 16 % (4-13); Mean Corpuscular HGB 28.9 pg (26.0-34.0); Mean Corpuscular HGB Conc 31.8 g/dL (31.5-36.5); Mean Corpuscular Volume 91 fL (80-100); Mean Platelet Volume 11.8 fL (9.1-12.4); NEUTROPHILS PERCENT AUTO 32 % (41-73); Platelet Count 165 K/mm3 (150-400); RDW Coefficient Variation 19.9 % (11.7-14.2); RDW Standard Deviation 66.4 fL (35.1-46.3); Red Blood Cell Count 2.42 M/mm3 (3.80-5.20); White Blood Cell Count 7.82 K/mm3 (4.00-11.30)
[2024-11-23 15:37] LABS: Amorphous Mod (0-Heavy); Bacteria Mod /hpf; Mucus Light (0-Heavy); Red Blood Cells, Urine 0-2 /hpf (0-2)
[2024-11-23 15:38] LABS: Squamous Epithelial Cells Rare /hpf (Few); Transitional Epithelial Cells Rare /hpf (0-Rare)
[2024-11-23 15:50] LABS: Albumin, Blood 2.7 g/dL (3.4-5.0); Albumin/Globulin Ratio 0.7 (0.8-1.8); Bilirubin, Total 0.4 mg/dL (0.1-1.0); Bun/Creatinine Ratio 22.1 (12.0-20.0); Calcium, Blood 8.1 mg/dL (8.5-10.1); Creatinine, Blood 1.45 mg/dL (0.40-1.00); Globulin, Blood 4.1 g/dL (2.2-4.0); Potassium, Blood 4.4 mmol/L (3.5-5.5); Total Protein, Blood 6.8 g/dL (6.4-8.2)
[2024-11-23 16:32] LABS: CORONAVIRUS COVID-19 AG Negative (NEGATIVE); INFLUENZA A AG Negative (NEGATIVE); INFLUENZA B AG Negative (NEGATIVE)
[2024-11-23] MEDS ORDERED: CefTRIAXone Sodium 1,000 MG in NS 50 ML IV ONE (16:45)
[2024-11-23] MEDS ORDERED: Macrobid 100 M100 MG PO (17:08)
[2024-11-23] MEDS ORDERED: CEPH500 PO (17:08)
[2024-11-23 17:29] VITALS: BP 107/73
== END 2024-11-23 18:00 | disposition home or self-care (01) ==
LOC: ER 13:05
PROVIDERS: Emergency Medicine
DX: N39.0 Urinary tract infection, site not specified (principal); I48.91 Unspecified atrial fibrillation; I10 Essential (primary) hypertension; I47.10 Supraventricular tachycardia, unspecified; Z79.1 Long term (current) use of non-steroidal anti-inflammatories (NSAID); Z79.899 Other long term (current) drug therapy; Z79.83 Long term (current) use of bisphosphonates; Z88.2 Allergy status to sulfonamides; Z79.52 Long term (current) use of systemic steroids; Z79.2 Long term (current) use of antibiotics
CPT/HCPCS: 51701; 71045; 80053; 81001; 85025; 87086; 87428-QW; 96365; 99285-25; J0696